=== PATIENT | female | born 1975 | race Caucasian/White ===

== ENCOUNTER 2016-08-21 12:12 | Emergency (ER) | payer MEDICAID ==
[~2016-08-21] VITALS: Ht 180.3 cm; Wt 77.1 kg
[~2016-08-21 12:12] MED LIST: ALBUPOW26; CIPRO; METO10TA3; OMEPRAZOLE 20MG CAPSULES; TRAM50TA2
[2016-08-21 13:17] LABS: Hemoglobin 14.9 g/dL (12.2-16.2); Mean Corpuscular Hemoglobin 31.2 pg (28.0-32.0); Mean Corpuscular Volume 94.5 fL (80.0-100.0); Mean Platelet Volume 7.5 fL (7.4-10.4); Platelet Count (auto) 350 10^3/uL (140-450); Red Cell Distribution Width 12.4 % (11.6-16.0); White Blood Cell 11.4 10^3/uL (4.4-10.8)
[2016-08-21 13:37] LABS: Albumin 3.5 g/dL (3.4-5.0); BUN/Creatinine Ratio 16.9; Bilirubin, Total 0.3 mg/dL (0.2-1.0); Magnesium 2.1 mg/dL (1.6-2.6); Potassium 4.1 mmol/L (3.5-5.1); Total Protein 7.7 g/dL (6.4-8.2)
[2016-08-21 13:45] LABS: Metamyelocytes % 0; Myelocytes % 0; Promyelocytes % 0; Reactive Lymphocytes 0
[2016-08-21] MEDS ORDERED: DEXAMETHASONE 4 MG TAB PO ONE (14:30)
[2016-08-21] MEDS ORDERED: ALBUTEROL SULF 2.5 MG/0.5ML(0.5%) NEB SOLN NEB ONE (14:30)
[2016-08-21] MEDS ORDERED: LEVOFLOXACIN 250 MG TAB PO ONE (14:30)
[2016-08-21 14:31] LABS: Platelet Estimate Adequate; RBC Morphology Normal
[2016-08-21 15:13] VITALS: BP 121/96
== END 2016-08-21 15:13 | disposition home or self-care (01) ==
LOC: ER 12:12
DX: J20.9 Acute bronchitis, unspecified (principal); J45.901 Unspecified asthma with (acute) exacerbation; Z59.0 Homelessness; F17.210 Nicotine dependence, cigarettes, uncomplicated; F12.10 Cannabis abuse, uncomplicated; F15.10 Other stimulant abuse, uncomplicated
CPT/HCPCS: 36415; 71020; 80053; 83735; 84484; 85007; 85027; 85049; 93005; 94640; 99285; J8540

== ENCOUNTER 2016-08-22 10:50 | Inpatient (IN) | payer MEDICAID, OTHER ==
[~2016-08-22] VITALS: Ht 172.7 cm; Wt 77.2 kg
[2016-08-22 12:52] LABS: Basophils # (auto) 0 uL; Basophils % (auto) 0.2 % (0.0-2.0); Eosinophils # (auto) 0 uL; Hematocrit 46.8 % (36.0-46.0); Hemoglobin 15.6 g/dL (12.2-16.2); Lymphocytes # (auto) 1.4 uL; Lymphocytes % (auto) 8.7 % (10.0-50.0); Mean Corpuscular Hemoglobin 31.2 pg (28.0-32.0); Mean Corpuscular Hgb Conc. 33.3 g/dL (32.0-36.0); Mean Corpuscular Volume 93.8 fL (80.0-100.0); Monocytes # (auto) 1.1 uL; Monocytes % (auto) 6.8 % (0.0-12.0); Neutrophils % (auto) 84.3 % (37.0-80.0); Platelet Count (auto) 394 10^3/uL (140-450); Red Cell Distribution Width 12.5 % (11.6-16.0); White Blood Cell 16.6 10^3/uL (4.4-10.8)
[2016-08-22 13:27] LABS: BUN/Creatinine Ratio 25.7; Bilirubin, Total 0.3 mg/dL (0.2-1.0); Calcium 10.3 mg/dL (8.5-10.1); Potassium 4.6 mmol/L (3.5-5.1); Total Protein 8.8 g/dL (6.4-8.2)
[2016-08-22] MEDS ORDERED: MORPHINE SULFATE 4 MG/ML SYRG IV ONE (14:30)
[2016-08-22] MEDS ORDERED: ONDANSETRON HCL 4 MG/2 ML VIAL IV ONE (14:30)
[2016-08-22] MEDS ORDERED: SODIUM CHLORIDE 0.9% 1,000 ML IV ONE ×2 (14:37→15:19)
[2016-08-22 15:00] LABS: Urine Bilirubin Negative (Negative); Urine Blood Negative /uL (Negative); Urine Color Yellow (Yellow); Urine Glucose Normal (Normal); Urine Ketone Negative (Negative); Urine Mucus FEW (None Seen); Urine Nitrite Negative (Negative); Urine RBC 1 /hpf (0 - 4); Urine Squamous Epithelial Cell FEW /hpf (<5); Urine Urobilinogen Normal (Negative)
[2016-08-22] MEDS ORDERED: SODIUM CHLORIDE 0.9% 250 ML IV ONE (15:19)
[2016-08-22] MEDS ORDERED: metroNIDAZOLE 500MG/100ML 100 ML IV ONE (15:30)
[2016-08-22] MEDS ORDERED: PIPERACILLIN-TAZOB 3.375GM 100 ML IV ONE (15:30)
[2016-08-22] MEDS ORDERED: FAMOTIDINE (10MG/ML) 2ML VL IV ONE (16:15)
[2016-08-22] MEDS ORDERED: PANTOPRAZOLE SODIUM 40 MG/10 ML VIAL IV ONE (16:15)
[2016-08-22] MEDS ORDERED: MORPHINE SULF INJ 2 MG/ML SYRINGE 1ML IV ONE (16:15)
[2016-08-22 16:25] LABS: Lactic Acid 2.6 mmol/L (0.4-2.0)
[2016-08-22] MEDS ORDERED: ONDANSETRON HCL 4 MG/2 ML VIAL IV PRN (16:30)
[2016-08-22] MEDS ORDERED: cefTRIAXone 1GM/50ML D5W 50 ML IV ONE (16:30)
[2016-08-22] MEDS ORDERED: TEMAZEPAM 15 MG CAP PO PRN (16:30)
[2016-08-22] MEDS ORDERED: DEXTROSE (50%) 50ML SYRG IV PRN (16:30)
[2016-08-22] MEDS ORDERED: ACETAMINOPHEN 325 MG TAB PO PRN (16:30)
[2016-08-22] MEDS ORDERED: MORPHINE SULF INJ 2 MG/ML SYRINGE 1ML IV PRN (16:30)
[2016-08-22] MEDS ORDERED: DOCUSATE SOD 100 MG CAP PO PRN (16:30)
[2016-08-22 16:32] LABS: REFLEX LACTIC ACID YES OR NO YES
[2016-08-22] MEDS: InsuLIN REG 1unit/0.01ml Soln (100units/ml) SC SCH ×2 (17:00→19:52)
[2016-08-22] MEDS: ACCU-CHEK COMFORT CURVE STRIP VI SCH ×2 (17:00→19:52)
[2016-08-22] MEDS: MULTIPLE VITAMIN TAB PO SCH (17:56)
[2016-08-22] MEDS: METOCLOPRAMIDE HCL 10 MG TAB PO SCH ×2 (17:57→19:53)
[2016-08-22] MEDS: ALBUTEROL SULF 2.5 MG/0.5ML(0.5%) NEB SOLN NEB SCH (18:28)
[2016-08-22 19:26] VITALS: BP 145/91
[2016-08-22] MEDS: HYDROcodone-ACET 5/325MG TAB PO PRN (19:52)
[2016-08-22] MEDS: metroNIDAZOLE 500MG/100ML 100 ML IV SCH (19:53)
[2016-08-22 19:57] LABS: INR 1.01 (0.9-1.15); Prothrombin Time 10.4 sec (9.37-12.3)
[2016-08-22] MEDS: SODIUM CHLORIDE 0.9% 1,000 ML IV SCH (19:57)
[2016-08-22 20:00] VITALS: BP 138/82
[2016-08-22] MEDS ORDERED: FAMOTIDINE (10MG/ML) 2ML VL IV SCH (22:00)
[2016-08-22] MEDS: traMADol HCL 50 MG TAB PO PRN (22:43)
[2016-08-23] MEDS: metroNIDAZOLE 500MG/100ML 100 ML IV SCH (03:10)
[2016-08-23] MEDS: SODIUM CHLORIDE 0.9% 1,000 ML IV SCH ×3 (03:11→15:17)
[2016-08-23] MEDS: HYDROcodone-ACET 5/325MG TAB PO PRN ×3 (03:11→18:37)
[2016-08-23 04:51] VITALS: BP 152/77
[2016-08-23] MEDS: traMADol HCL 50 MG TAB PO PRN ×2 (05:04→09:01)
[2016-08-23] MEDS: METOCLOPRAMIDE HCL 10 MG TAB PO SCH ×4 (05:05→21:27)
[2016-08-23] MEDS: InsuLIN REG 1unit/0.01ml Soln (100units/ml) SC SCH ×2 (05:05→11:30)
[2016-08-23] MEDS: ACCU-CHEK COMFORT CURVE STRIP VI SCH ×2 (05:05→11:59)
[2016-08-23] MEDS: ALBUTEROL SULF 2.5 MG/0.5ML(0.5%) NEB SOLN NEB SCH ×2 (06:40→11:36)
[2016-08-23 06:46] LABS: Basophils # (auto) 0.1 uL; Basophils % (auto) 0.5 % (0.0-2.0); Eosinophils # (auto) 0 uL; Eosinophils % (auto) 0.2 % (0.0-7.0); Hematocrit 38.2 % (36.0-46.0); Hemoglobin 12.7 g/dL (12.2-16.2); Mean Corpuscular Hemoglobin 31.2 pg (28.0-32.0); Mean Corpuscular Hgb Conc. 33.3 g/dL (32.0-36.0); Mean Corpuscular Volume 93.7 fL (80.0-100.0); Mean Platelet Volume 8.1 fL (7.4-10.4); Monocytes # (auto) 1.1 uL; Monocytes % (auto) 10.2 % (0.0-12.0); Neutrophils % (auto) 71.1 % (37.0-80.0); Platelet Count (auto) 321 10^3/uL (140-450); Red Cell Distribution Width 12.3 % (11.6-16.0); White Blood Cell 11.2 10^3/uL (4.4-10.8)
[2016-08-23 07:11] LABS: Albumin 2.8 g/dL (3.4-5.0); Calcium 8.3 mg/dL (8.5-10.1); Potassium 3.8 mmol/L (3.5-5.1)
[2016-08-23 07:13] LABS: BUN/Creatinine Ratio 24.6
[2016-08-23 07:25] LABS: Bilirubin, Total 0.3 mg/dL (0.2-1.0); Total Protein 6.9 g/dL (6.4-8.2)
[2016-08-23 08:18] VITALS: BP 118/69
[2016-08-23] MEDS ORDERED: cefTRIAXone 1GM/50ML D5W 50 ML IV SCH (09:00)
[2016-08-23] MEDS: MULTIPLE VITAMIN TAB PO SCH (09:07)
[2016-08-23] MEDS: PANTOPRAZOLE SODIUM 40 MG/10 ML VIAL IV SCH (09:07)
[2016-08-23 13:00] VITALS: BP_SYST 111
[2016-08-23 17:33] VITALS: BP 115/51
[2016-08-23 22:00] VITALS: BP 112/58
[2016-08-23] MEDS ORDERED: METO-281 PO (22:37)
[2016-08-23] MEDS ORDERED: OMEP20CA5 PO (22:37)
[2016-08-23] MEDS ORDERED: TRAM50TA2 PO (22:37)
[2016-08-24 05:00] VITALS: BP 108/68
[2016-08-24 05:53] LABS: Basophils # (auto) 0 uL; Basophils % (auto) 0.8 % (0.0-2.0); Eosinophils # (auto) 0 uL; Eosinophils % (auto) 0.8 % (0.0-7.0); Hemoglobin 12.9 g/dL (12.2-16.2); Lymphocytes # (auto) 2.1 uL; Lymphocytes % (auto) 36.8 % (10.0-50.0); Mean Corpuscular Hemoglobin 31.1 pg (28.0-32.0); Mean Corpuscular Hgb Conc. 33.1 g/dL (32.0-36.0); Mean Corpuscular Volume 93.9 fL (80.0-100.0); Mean Platelet Volume 7.9 fL (7.4-10.4); Monocytes # (auto) 0.8 uL; Monocytes % (auto) 13.9 % (0.0-12.0); Neutrophils # (auto) 2.8 uL; Neutrophils % (auto) 47.7 % (37.0-80.0); Platelet Count (auto) 318 10^3/uL (140-450); Red Cell Distribution Width 12.6 % (11.6-16.0); White Blood Cell 5.8 10^3/uL (4.4-10.8)
[2016-08-24] MEDS: METOCLOPRAMIDE HCL 10 MG TAB PO SCH (05:59)
[2016-08-24] MEDS: SODIUM CHLORIDE 0.9% 1,000 ML IV SCH (05:59)
[2016-08-24] MEDS: ALBUTEROL SULF 2.5 MG/0.5ML(0.5%) NEB SOLN NEB SCH ×2 (07:20→13:24)
[2016-08-24 07:45] VITALS: BP 103/64
[2016-08-24] MEDS: MULTIPLE VITAMIN TAB PO SCH (09:54)
[2016-08-24] MEDS: HYDROcodone-ACET 5/325MG TAB PO PRN (09:55)
[2016-08-24] MEDS: PANTOPRAZOLE SODIUM 40 MG/10 ML VIAL IV SCH (09:55)
[2016-08-24 12:24] VITALS: BP 110/56
[2016-08-24 12:59] VITALS: BP 110/56
== END 2016-08-24 14:00 | disposition home or self-care (01) | DRG 723 ==
LOC: EDBD 10:53 → ER 10:53 → EDUNIT# 10:53 → OVERFLOW 10:54 → EAST 18:18
PROVIDERS: ADMIT Internal Medicine; ATTEND Internal Medicine
DX: B34.9 Viral infection, unspecified (principal); K92.0 Hematemesis; E11.22 Type 2 diabetes mellitus with diabetic chronic kidney disease; E11.65 Type 2 diabetes mellitus with hyperglycemia; E83.52 Hypercalcemia; N18.1 Chronic kidney disease, stage 1; E86.0 Dehydration; J20.9 Acute bronchitis, unspecified; F41.9 Anxiety disorder, unspecified; B19.20 Unspecified viral hepatitis C without hepatic coma; F31.9 Bipolar disorder, unspecified; J45.909 Unspecified asthma, uncomplicated; K21.9 Gastro-esophageal reflux disease without esophagitis; F17.210 Nicotine dependence, cigarettes, uncomplicated; Z98.890 Other specified postprocedural states; Z90.710 Acquired absence of both cervix and uterus; Z71.6 Tobacco abuse counseling
CPT/HCPCS: 36415; 71010; 74176; 80053; 81001; 82150; 82962; 83036; 83605; 83690; 84484; 85025; 85049; 85610; 87040; 87086; 94640; 94761; 96365; 96366; 96375; 96376; C9113; J0696; J2405; J2543; J3490

== ENCOUNTER 2017-03-06 09:23 | Emergency (ER) | payer MEDICAID ==
[~2017-03-06] VITALS: Ht 180.3 cm; Wt 81.6 kg
[~2017-03-06 09:23] MED LIST changes: -ALBUPOW26; -CIPRO; +METO-281 PO; -METO10TA3; +OMEP20CA74 PO; -OMEPRAZOLE 20MG CAPSULES; -TRAM50TA2; +TRAM50TA2 PO
[2017-03-06 10:20] VITALS: BP 171/96
[2017-03-06] MEDS ORDERED: KETOROLAC TROMETH 60MG/2ML VIAL IM ONE (11:00)
== END 2017-03-06 12:04 | disposition home or self-care (01) ==
LOC: ER 09:24
DX: S80.812A Abrasion, left lower leg, initial encounter (principal); F17.210 Nicotine dependence, cigarettes, uncomplicated; F12.10 Cannabis abuse, uncomplicated; J45.909 Unspecified asthma, uncomplicated; M54.5 Low back pain; M25.551 Pain in right hip; M25.512 Pain in left shoulder; Z90.710 Acquired absence of both cervix and uterus; Z90.49 Acquired absence of other specified parts of digestive tract; Z59.0 Homelessness; V43.62XA Car passenger injured in collision with other type car in traffic accident, initial encounter; Y93.89 Activity, other specified; Y92.89 Other specified places as the place of occurrence of the external cause; Y99.8 Other external cause status
CPT/HCPCS: 72100; 73030; 73502; 96372; 99284; J1885

== ENCOUNTER 2018-01-22 19:31 | Emergency (ER) | payer MEDICAID ==
[~2018-01-22] VITALS: Ht 180.3 cm; Wt 79.4 kg
[2018-01-22 19:45] VITALS: BP 136/68
[2018-01-22 20:06] LABS: Urine Bacteria FEW /hpf (None Seen); Urine Blood Negative /uL (Negative); Urine Mucus FEW (None Seen); Urine Specific Gravity 1.032 (1.001-1.035); Urine WBC 15 /hpf (0 - 5)
[2018-01-22 20:19] LABS: Alcohol, Urine < 3.0 mg/dL (0-5); Amphetamine Screen, Urine POSITIVE (NEGATIVE); Barbiturate Scree,Urine NEGATIVE (NEGATIVE); Benzodiazephine Screen, Urine NEGATIVE (NEGATIVE); Cannabinoid Screen, Urine POSITIVE (NEGATIVE); Cocaine Screen, Urine NEGATIVE (NEGATIVE); Opiate Scree,Urine NEGATIVE (NEGATIVE); Phencyclidine Screen, Urine NEGATIVE (NEGATIVE)
[2018-01-22 20:51] LABS: Basophils # (auto) 0 uL; Basophils % (auto) 0.4 % (0.0-2.0); Eosinophils # (auto) 0.1 uL; Eosinophils % (auto) 1.2 % (0.0-7.0); Hematocrit 45.2 % (36.0-46.0); Hemoglobin 15.3 g/dL (12.2-16.2); Lymphocytes # (auto) 2.2 uL; Lymphocytes % (auto) 19.7 % (10.0-50.0); Mean Corpuscular Hemoglobin 31.4 pg (28.0-32.0); Mean Corpuscular Hgb Conc. 33.8 g/dL (32.0-36.0); Mean Corpuscular Volume 92.8 fL (80.0-100.0); Monocytes % (auto) 9.3 % (0.0-12.0); Neutrophils # (auto) 7.7 uL; Neutrophils % (auto) 69.4 % (37.0-80.0); Nucleated Red Blood Cells % 0.1 %; Platelet Count (auto) 359 10^3/uL (140-450); Red Blood Cells 4.87 10^6/uL (4.0-5.20); Red Cell Distribution Width 13.2 % (11.8-14.3); White Blood Cell 11.1 10^3/uL (4.4-10.8)
[2018-01-22 21:05] LABS: INR 0.91 (0.9-1.15); Partial Thromboplastin Time 29.2 sec (23.78-33.04); Prothrombin Time 9.8 sec (9.27-12.13)
[2018-01-22 21:06] LABS: Alanine Aminotransferase 61 U/L (13-56); Albumin 3.4 g/dL (3.4-5.0); Anion Gap 10 (5-15); Aspartate Aminotransferase 96 U/L (15-37); BUN/Creatinine Ratio 24.4; Blood Urea Nitrogen 21 mg/dL (7-18); Calcium 8.8 mg/dL (8.5-10.1); Carbon Dioxide 21 mmol/L (21-32); Chloride 107 mmol/L (98-107); GFR African American 94 mL/min; GFR Non-African American 78 mL/min; Glucose 104 mg/dL (74-106); Potassium 4.4 mmol/L (3.5-5.1); Sodium 138 mmol/L (136-145)
[2018-01-22 21:11] LABS: Alkaline Phosphatase 107 U/L (45-117); Bilirubin, Total 0.5 mg/dL (0.2-1.0); Total Protein 8.1 g/dL (6.4-8.2)
== END 2018-01-22 22:00 | disposition left against medical advice (07) ==
LOC: EDBD 19:31 → ER 19:31
DX: R10.84 Generalized abdominal pain (principal); R19.7 Diarrhea, unspecified; Z53.21 Procedure and treatment not carried out due to patient leaving prior to being seen by health care provider
CPT/HCPCS: 36415; 74176; 80053; 80307; 81001; 84484; 85025; 85610; 85730

== ENCOUNTER 2018-06-17 11:09 | Emergency (ER) | payer MEDICAID ==
[~2018-06-17] VITALS: Ht 180.3 cm; Wt 79.4 kg
[2018-06-17 11:22] VITALS: BP 118/85
[2018-06-17] MEDS ORDERED: KETOROLAC TROMETH 60MG/2ML VIAL IM ONE (13:00)
== END 2018-06-17 14:28 | disposition home or self-care (01) ==
LOC: ER 11:09
DX: G89.29 Other chronic pain (principal); M25.512 Pain in left shoulder; R05 Cough; J45.909 Unspecified asthma, uncomplicated; F12.10 Cannabis abuse, uncomplicated; F15.10 Other stimulant abuse, uncomplicated; Z59.0 Homelessness; Z90.49 Acquired absence of other specified parts of digestive tract; Z90.710 Acquired absence of both cervix and uterus; Z79.899 Other long term (current) drug therapy; Z87.891 Personal history of nicotine dependence
CPT/HCPCS: 71046; 73030; 96372; 99284; J1885